=== PATIENT | female | born 1950 | race Caucasian/White ===

== ENCOUNTER 2018-12-23 07:48 | Day surgery (SDC) | payer OTHER, BC ==
[2018-12-20 11:35] VITALS: BMI 24.0
[2018-12-23] MEDS ORDERED: PROPOFOL 20 ML ONE ×2 (08:06)
[2018-12-23 09:41] VITALS: TEMP 97.5
[2018-12-23 10:13] VITALS: BP 117/67; PULSE 65
--- NOTE | 2018-12-29 12:04 | PATH ---
Surgical Pathology Report Patient Name: LANI GRULLON [facility]. Rec. #: [id number] /Age/Gender: 1950 (Age: 68) / F Account: [id number] Location: [facility] Taken: 12/23/2018 Received: 12/23/2018 Reported: 12/29/2018 Physicians: Cornelio Lui M.D. Specimen(s) Received A: BX POLYP RIGHT COLON B: POLYPECTOMY SIGMOID COLON C: BX POLYP PROXIMAL SIGMOID COLON Clinical History Family history of colon cancer Postoperative diagnosis: Colon polyps Final Diagnosis A. RIGHT COLON, POLYP, BIOPSY: TUBULAR ADENOMA. B. SIGMOID COLON, POLYP, HOT SNARE POLYPECTOMY: TUBULAR ADENOMA. C. PROXIMAL SIGMOID COLON, POLYP, BIOPSY: SESSILE SERRATED POLYP. Electronically Signed Doreen Phan M.D. Gross Description A. Received in formalin, labeled "biopsy polyp right colon" is a porter, irregular portion of soft tissue measuring 0.5 cm. in greatest dimension. The specimen is submitted in toto in one cassette. B. Received in formalin labeled "hot snare polypectomy sigmoid colon," is a 1.2 x 0.8 x 0.6 cm porter, polypoid portion of soft tissue. The specimen is bisected and entirely submitted in one cassette. C. Received in formalin, labeled "biopsy polyp proximal sigmoid colon" are two porter, irregular portions of soft tissue, each measuring 0.5 cm. in greatest dimension. The specimen is submitted in toto in one cassette. 12/24/2018 saudi12/24/2018
== END 2018-12-23 10:10 | disposition home or self-care (01) ==
LOC: FASU-ENDO 07:48
PROVIDERS: ATTEND Internal Medicine Gastroenterology
PROC: 0DBN8ZX Excision of Sigmoid Colon, Via Natural or Artificial Opening Endoscopic, Diagnostic (ICD-10-PCS; 2018-12-23)
PROC: 0DBK8ZX Excision of Ascending Colon, Via Natural or Artificial Opening Endoscopic, Diagnostic (ICD-10-PCS; principal; 2018-12-23 09:03)
DX: Z12.11 Encounter for screening for malignant neoplasm of colon (principal); D12.2 Benign neoplasm of ascending colon; D12.5 Benign neoplasm of sigmoid colon; Z80.0 Family history of malignant neoplasm of digestive organs
CPT/HCPCS: 88305-TC

== ENCOUNTER 2020-03-10 10:56 | Emergency (ER) | payer OTHER, BC | END 2020-03-10 11:18 | disposition home or self-care (01) | LOC: JVIRT 10:56 | DX: Z11.52 Encounter for screening for COVID-19 (principal) | CPT/HCPCS: C9803; G2012-GT; U0003 ==

== ENCOUNTER 2021-08-28 08:31 | Day surgery (SDC) | payer BC, OTHER ==
[2021-08-26 14:12] VITALS: BMI 22.6
[2021-08-28] MEDS: PHENYLEPHRINE 2.5% OPHTH SOLN 15 ML BOTTLE ONE ×3 (09:40→09:50)
[2021-08-28] MEDS: CYCLOPENTOLATE 2% OPHTH SOLN 2 ML BOTTLE ONE ×3 (09:40→09:50)
[2021-08-28] MEDS: CIPROFLOXACIN 0.3% EYE DROPS 5 ML BOTTLE ONE ×3 (09:40→09:50)
[2021-08-28] MEDS: TROPICAMIDE 1% OPHTH SOLN 15 ML BOTTLE ONE ×3 (09:40→09:50)
[2021-08-28] MEDS ORDERED: BSS (NA/CA/MG/K) BALANCED SALT SOLUTION OPHTH SOLN 15 ML BOTTLE ONE (09:49)
[2021-08-28] MEDS ORDERED: CARBACHOL 0.01% INTRA-OCULAR 1.5 ML VIAL ONE (09:50)
[2021-08-28] MEDS ORDERED: NEO/POLYMYX B SULF/DEXAMETH OPHTHALMIC 5ML BOTTLE ONE (09:50)
[2021-08-28] MEDS ORDERED: MIDAZOLAM HCL 2 MG/2 ML SINGLE DOSE VIAL ONE (10:56)
[2021-08-28] MEDS ORDERED: ONDANSETRON 4 MG/2 ML VIAL ONE (10:57)
[2021-08-28 13:35] VITALS: TEMP 97
[2021-08-28 13:47] VITALS: BP 128/80; PULSE 77
== END 2021-08-28 11:50 | disposition home or self-care (01) ==
LOC: FASU 08:31
PROVIDERS: ATTEND Ophthalmology
PROC: 08RJ3JZ Replacement of Right Lens with Synthetic Substitute, Percutaneous Approach (ICD-10-PCS; principal; 2021-08-28 11:00)
DX: H26.8 Other specified cataract (principal)
CPT/HCPCS: 66984; V2632

== ENCOUNTER 2021-10-09 07:26 | Day surgery (SDC) | payer OTHER ==
[2021-10-04 16:02] VITALS: BMI 22.6
[2021-10-09] MEDS ORDERED: CYCLOPENTOLATE 2% OPHTH SOLN 2 ML BOTTLE ONE (07:36)
[2021-10-09] MEDS ORDERED: TROPICAMIDE 1% OPHTH SOLN 15 ML BOTTLE ONE (07:36)
[2021-10-09] MEDS ORDERED: CIPROFLOXACIN 0.3% EYE DROPS 5 ML BOTTLE ONE (07:36)
[2021-10-09] MEDS ORDERED: PHENYLEPHRINE 2.5% OPHTH SOLN 15 ML BOTTLE ONE (07:36)
[2021-10-09] MEDS ORDERED: CYCLOPENTOLATE 2% OPHTH SOLN 2 ML BOTTLE OS ONE ×3 (07:45→07:55)
[2021-10-09] MEDS ORDERED: PHENYLEPHRINE 2.5% OPHTH SOLN 15 ML BOTTLE OS ONE ×3 (07:45→07:55)
[2021-10-09] MEDS ORDERED: CIPROFLOXACIN HCL 0.3% OPHTH 2.5ML BOTTLE OS ONE ×3 (07:45→07:55)
[2021-10-09] MEDS ORDERED: TROPICAMIDE 1% OPHTH SOLN 15 ML BOTTLE OS ONE ×3 (07:45→07:55)
[2021-10-09 07:49] VITALS: RESP 16
[2021-10-09] MEDS ORDERED: EPINEPHrine/PF 1 MG/1 ML (1:1,000) AMPULE ONE (08:16)
[2021-10-09] MEDS ORDERED: LIDOCAINE HCL/PF 1% SDV 5ML VIAL ONE (08:17)
[2021-10-09] MEDS ORDERED: TETRACAINE 0.5% OPHTH SOLN 2 ML BOTTLE ONE (08:17)
[2021-10-09] MEDS ORDERED: BSS (NA/CA/MG/K) BALANCED SALT SOLUTION OPHTH SOLN 15 ML BOTTLE ONE (08:17)
[2021-10-09] MEDS ORDERED: NEO/POLYMYX B SULF/DEXAMETH OPHTHALMIC 5ML BOTTLE ONE (08:17)
[2021-10-09] MEDS ORDERED: CARBACHOL 0.01% INTRA-OCULAR 1.5 ML VIAL ONE (08:17)
[2021-10-09] MEDS ORDERED: MIDAZOLAM HCL 2 MG/2 ML SINGLE DOSE VIAL ONE (09:03)
[2021-10-09 10:24] VITALS: BP 138/84; PULSE 77; TEMP 97
== END 2021-10-09 10:22 | disposition home or self-care (01) ==
LOC: FASU 07:26
PROVIDERS: ATTEND Ophthalmology
PROC: 08RK3JZ Replacement of Left Lens with Synthetic Substitute, Percutaneous Approach (ICD-10-PCS; principal; 2021-10-09 09:22)
DX: H26.8 Other specified cataract (principal)
CPT/HCPCS: 66984; V2632